=== PATIENT | male | born 1955 | race Caucasian/White ===

== ENCOUNTER 2020-10-21 14:16 | Emergency (ER) | payer SELFPAY ==
[~2020-10-21] VITALS: Ht 170.2 cm; Wt 75.0 kg
[2020-10-21] MEDS ORDERED: ONDANSETRON HCL 4MG TABLET PO ONE (14:45)
[2020-10-21] MEDS ORDERED: ACETAMINOPHEN 325MG TABLET PO ONE (14:45)
[2020-10-21] MEDS ORDERED: TOPUD PO (15:30)
[2020-10-21 15:47] VITALS: BP 128/70
== END 2020-10-21 15:48 | disposition home or self-care (01) ==
LOC: ER 14:29
DX: S09.8XXA Other specified injuries of head, initial encounter (principal); M25.511 Pain in right shoulder; M79.10 Myalgia, unspecified site; M19.90 Unspecified osteoarthritis, unspecified site; W22.8XXA Striking against or struck by other objects, initial encounter; Y93.89 Activity, other specified; Y92.39 Other specified sports and athletic area as the place of occurrence of the external cause; Y99.8 Other external cause status
CPT/HCPCS: 70450; 73030; 99284; Q0162